=== PATIENT | female | born 1955 | race Caucasian/White ===

== ENCOUNTER 2018-10-26 07:02 | Inpatient (IN) | payer OTHER ==
[2018-10-14 16:30] VITALS: BMI 21.5
[2018-10-26] MEDS ORDERED: MIDAZOLAM HCL 2 MG/2 ML SINGLE DOSE VIAL ONE (08:50)
[2018-10-26] MEDS ORDERED: HALOPERIDOL LACTATE 5 MG/ML ONE (08:50)
[2018-10-26] MEDS ORDERED: fentaNYL CITRATE 250 MCG/5 ML VIAL ONE (08:59)
[2018-10-26] MEDS ORDERED: PROPOFOL 20 ML ONE ×2 (08:59)
[2018-10-26] MEDS ORDERED: SUCCINYLCHOLINE CHLORIDE 200 MG/10 ML VIAL ONE (08:59)
[2018-10-26] MEDS ORDERED: ROCURONIUM BROMIDE 50 MG/5 ML VIAL ONE ×2 (08:59→10:14)
[2018-10-26] MEDS ORDERED: ePHEDrine SULFATE 50 MG/1 ML AMPULE ONE ×3 (09:13→12:30)
[2018-10-26] MEDS ORDERED: LIDOCAINE HCL 2% JELLY (5 ML/TUBE) ONE (09:34)
[2018-10-26] MEDS ORDERED: LIDOCAINE HCL/PF 2% SDV 5ML VIAL ONE (09:34)
[2018-10-26] MEDS ORDERED: KETOROLAC TROMETHAMINE 30 MG/1 ML VIAL ONE (09:34)
[2018-10-26] MEDS ORDERED: ceFAZolin SODIUM 1 GM VIAL ONE ×2 (09:34→12:23)
[2018-10-26] MEDS ORDERED: ONDANSETRON 4 MG/2 ML VIAL ONE (09:34)
[2018-10-26] MEDS ORDERED: DEXAMETHASONE SOD PHOSPHATE 4 MG/1 ML VIAL ONE (09:34)
[2018-10-26] MEDS ORDERED: BUPIVACAINE HCL 0.25% 125 MG/50 ML VIAL ONE (10:01)
[2018-10-26] MEDS ORDERED: NEOSTIGMINE METHYLSULFATE 0.5 MG/ML - 10 ML MDV ONE (12:41)
[2018-10-26] MEDS ORDERED: GLYCOPYRROLATE 0.2 MG/1 ML VIAL ONE (12:42)
[2018-10-26] MEDS ORDERED: BUPIVACAINE HCL/PF 0.25% (2.5MG/ML) 10 ML VIAL IJ ONE (12:42)
[2018-10-26] MEDS ORDERED: PROMETHAZINE HCL 25 MG/1 ML VIAL IVPUSH PRN (13:33)
[2018-10-26] MEDS ORDERED: ONDANSETRON 4 MG/2 ML VIAL IVPUSH PRN (13:33)
[2018-10-26] MEDS ORDERED: oxyCODONE HCL 5 MG TABLET PO PRN ×4 (13:33→13:36)
[2018-10-26] MEDS ORDERED: ONDANSETRON 4 MG/2 ML VIAL IVPB PRN (13:36)
--- NOTE | 2018-10-26 13:44 | PN ---
Progress Note (short form) - Note Progress Note: flap is pink and viable, BOONE functioning and normal output. OK for discharge with instructions. patient and are very reliable.
[2018-10-26] MEDS ORDERED: LACTATED RINGERS SOLUTION 1,000 ML IV SCH (13:45)
--- NOTE | 2018-10-26 13:46 | OP ---
Operative Note - Note: Operative Date: 10/26/18 Pre-Operative Diagnosis: threatened left breast implant Operation: Left breast capsulotomy with implant exchange and TAP flap breast reconstruction Implants: natrelle SRX 470 Post-Operative Diagnosis: Same as Pre-op Anesthesia: General Drains & Tubes with Location: BOONE x 2
[2018-10-26 14:55] VITALS: TEMP 97.6
[2018-10-26 16:12] VITALS: BP 98/68; PULSE 74
--- NOTE | 2018-10-27 15:02 | OP ---
DATE OF OPERATION: 10/26/2018 TITLE OF PROCEDURE: 1. Left breast revision of reconstruction using number 1 thoracodorsal and intercostal artery traveling buyer flap reconstruction of the inferior pole. 2. Left breast capsulotomy. 3. Removal of left breast existing implant and replacement with smaller left breast implant. 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 The patient is marked in the holding area, awake and aware of all incisions and resulting scars, risks, benefits, alternatives, and limitations to the operation. She and her family fully understand and agree to proceed. DELFINA hose and sequential compression stockings are applied. Patient is given preoperative antibiotics. She is then brought to the operating room and placed in supine position. At this point, she is given anesthesia and repositioned into a right lateral decubitus position with all appropriate positioning aids used including an axillary roll, pillow between the knees. Matthews catheter had been placed, which was removed at the end of the procedure. She is prepped and draped in standard surgical fashion. A timeout is called. Patient, procedure, sites, and sides are verified. At this point, the planned area for inferior pole reconstruction is marked. A Doppler is used to identify perforating branches of the thoracodorsal artery as well as the intercostal arteries. These were marked, and the flap is patterned to include these. An incision is made along the inframammary fold of the left breast reconstruction, and through this, a capsulotomy is performed. The existing 550-mL implant is removed. Extensive capsulotomies are then performed to treat the patient's severe Garcia grade IV capsular contracture. These were done superiorly, medially, laterally, and anteriorly. Hemostasis is meticulously achieved. Attention is then directed toward harvesting the flap. After marking, the flap is harvested from distal to proximal in a subfascial plane. As the zone of the perforating blood vessels is entered, the perforating blood vessels are identified. A back cut along the latissimus dorsi muscle including a back cut along a more-proximal intercostal artery traveling buyer is performed in order to allow for rotation of the fasciocutaneous flap. The flap is then developed as a skin island propeller flap, where fascia is then incised circumferentially around the flap, and dissection is continued, preserving 2 separate perforating blood vessels in order to allow for a tension-free rotation. A tunnel is then created between the back donor site and the recipient site, and the flap is able to be transferred into the tunnel. This section of the flap is de-epithelialized prior to transfer. The flap is pink and viable at this point. Once the flap is then completely tunneled into the recipient site, the donor site is then closed after meticulous hemostasis is achieved. A size 10 flat BOONE drain is brought out through a separate lateral stab wound incision in the back and secured with a 2-0 silk drain suture. Undermining of skin both superiorly and inferiorly allowed for closured of the back with a series of interrupted fascial 2-0 Vicryl suture. Deep dermis approximated with a series of interrupted, buried, deep dermal 3-0 Monocryl suture, followed by a running 2-0 V-Loc mid-dermal suture. Dressings are applied with Steri-Strips, 4-x-4 gauze, and Hypafix tape. An Ioban is placed over the recipient breast site which is stapled closed. Patient's drapes are then removed. The patient is then positioned in a supine position. Guidry bag is completely removed. The patient is re-prepped and draped using dual prep of Betadine and ChloraPrep, and the recipient site is then reopened. The tunneled flap is pink and viable. The sizer is placed into the breast wound after hemostasis then meticulously achieved. With the sizer in place, it is able to be determined the extent of the flap that needs to remain without de-epithelialization. This is marked. The flap is de-epithelialized with the exception of this segment. A Natrelle SRX-470 silicone gel, smooth, round implant is then brought onto the field, rinsed in standard dilute Betadine, and using sterile new gloves and a 1-touch technique, placed into the pocket. Skin paddle is trimmed to conform. The flap is used to increase the inframammary pole distance. The flap is used to layer between the implant and the thinned inframammary pole skin. Flap is then inset with a series of interrupted, buried, deep dermal, 3-0 Monocryl suture, followed by a running subcuticular 3-0 Monocryl suture. A dog ear from the donor site is excised and closed in the same fashion. A loose dressing is applied. A size 10 round Chevy drain is brought out through a separate stab wound incision and is placed into the breast wound, secured with a 2-0 silk drain suture. Patient is awoken from anesthesia, having tolerated the procedure well, transferred to Recovery without complication. Please note that the flap performed is a modification of a latissimus dorsi flap; however, it is used as a fasciocutaneous version than a myocutaneous version. ANDER PÉREZ M.D. [id number]
--- NOTE | 2018-10-30 15:30 | OP ---
DATE OF OPERATION: 10/26/2018 PREOPERATIVE DIAGNOSES: 1. Personal history of breast cancer. 2. Acquired absence of bilateral breasts and nipples. 3. Deformity of reconstructed left breast with lower pole contraction and implant capsular contracture. POSTOPERATIVE DIAGNOSES: 1. Personal history of breast cancer. 2. Acquired absence of bilateral breasts and nipples. 3. Deformity of reconstructed left breast with lower pole contraction and implant capsular contracture. PROCEDURES: 1. Left breast implant removal with open periprosthetic capsulotomy. 2. Reconstruction of left breast lower pole with thoracodorsal artery damper fitter flap. 3. Left breast lower pole reconstruction. 4. Left thoracodorsal artery damper fitter intraoperative angiography using indocyanine green. 5. Processing and interpretation of intraoperative angiography images. ATTENDING SURGEON: Petros Alvarenga MD CO-SURGEON: Ander Pérez MD ANESTHESIA: General endotracheal. ESTIMATED BLOOD LOSS: 100 mL. SPECIMEN: 1. Left breast implant for gross examination only. 2. Left breast skin to Pathology. DRAINS: Number 10 flat BOONE x2. COMPLICATIONS: None. CONDITION: Stable to recovery room, extubated. INDICATIONS: The patient is a 62-year-old woman with a history of left breast cancer, who has previously undergone bilateral mastectomies and implant-based reconstruction. The patient required adjuvant radiation therapy to the left breast and has subsequently developed a lower pole contraction with an underlying capsular contracture of the implant. The patient is therefore brought back to the operating room by both myself and Dr. Pérez for further left breast reconstruction with an open periprosthetic capsulotomy, implant exchange, and reconstruction of the lower pole with thoracodorsal artery damper fitter flap. The risks, benefits, and alternatives of the reconstructed procedures were discussed with the patient and her preoperatively in detail and all questions were answered. The risks include but are not limited to bleeding, infection, pain, need for revision or further surgery, partial or complete flap loss, damage to neighboring structures including nerves, arteries, veins, and tendons. The patient understands these risks and has elected to proceed with surgery. PROCEDURE: After proper identification and marking the patient in the preoperative holding area, the patient was transported to the operating room, placed supine on the table, where noninvasive anesthesia monitors were applied. Intravenous access was established. General anesthesia was administered and the patient was intubated without difficulty. SCD boots were applied to bilateral extremities. Matthews catheter was placed. Intravenous antibiotics were then given. The patient was then placed into a right lateral decubitus position with the aid of a beanbag and an axillary roll. Care was taken to ensure all pressure points were padded. At this point, the patient's left breast, left upper extremity, left lateral chest wall, and left back were all prepped and draped sterilely. After a timeout was performed, Dr. Pérez and Beverly began working independently as co-surgeons with separate instrument setups. Attention was first turned towards the left lateral chest wall, where Doppler examination was used to identify 2 thoracodorsal artery perforators. An anteriorly-based thoracodorsal artery damper fitter flap was then designed based on these 2 perforators. Care was taken to ensure adequate length and width of the flap were designed. After a timeout was performed, a number 10 blade was used to make both limbs of the elliptical skin paddle of the damper fitter flap. Electrocautery was used to carry the dissection down through the full-thickness of the subcutaneous tissue, with care taken to bevel outwards. Once the fascia overlying the latissimus and trapezius muscle bellies was encountered, it was circumferentially incised. The flap was then raised from a posterior to inferior direction just below the level of the fascia. At this point, the dissection proceeded on the anterior edge of the skin paddle with again care taken to bevel outwards until the fascia overlying the serratus anterior muscle belly was encountered. The fascia was incised and the dissection continued anteriorly along the chest wall until a communication with the left breast pocket was achieved. Care was taken to ensure there was an adequate tunnel for flap transposition. At this point, bipolar electrocautery was used to perform a [id number] dissection of the damper fitter flap until the 2 thoracodorsal artery perforators were identified. A backcut in the anterior edge of the latissimus muscle belly was performed distal to the perforators and the flap was then transposed 180 degrees. With the flap in a rotated position, the SPY machine was brought into the field. A 5 mL intravenous injection of indocyanine green was given and angiography of the damper fitter flap was performed. The angiography images were then processed and relative perfusion data was used to assess the perfusion. There was noted to be good perfusion all the way to the distal edge of the flap. Once intraoperative angiography was completed, attention was turned towards the closure of the back. The back was irrigated and hemostasis was ensured. Then 0.25% Marcaine was infiltrated along the skin edges. A number 10 flat BOONE drain was then placed into the back pocket and brought out through a separate stab incision along the midaxillary line, secured to the skin with a 3-0 nylon suture. The back skin edges were then reapproximated primarily using a 2-0 Vicryl suture in a buried deep dermal fashion followed by a 3-0 V-Loc barbed suture in a running subcuticular fashion. Steri-Strips were placed, followed by dry gauze and Hypafix tape. The flap was temporarily covered with an Ioban dressing, and at this point, the drapes were taken down and the patient was flipped into a supine position. Again, care was taken to ensure all pressure points were padded and the patient's bilateral breasts were then prepped and draped sterilely again. At this point, the Ioban was removed and attention was turned towards the left breast. An inframammary fold incision had been designed and this was incised with a number 10 blade. The dissection was carried down through the subcutaneous tissue until the underlying breast capsule was identified. The breast capsule was incised and the underlying breast implant was removed and passed off the field for gross examination only. At this point, the left breast capsule was inspected and there was noted to be evidence of capsular contracture. An open periprosthetic capsulotomy was then performed superiorly, medially, and laterally. In addition, multiple radial scores in the inferior breast skin were performed. Once this was completed, the left breast pocket was irrigated and hemostasis was ensured. Next, a left breast implant sizer was placed and the thoracodorsal artery damper fitter flap was placed over it, and there was noted to be an ideal size and symmetry with the other breast at 470 mL. Therefore, the sizer was removed. The amount of thoracodorsal artery damper fitter skin paddle to be externalized along the inferior pole was then marked and redundant skin paddle was de-epithelialized both proximally and distally. There was noted to be healthy bleeding from the dermis throughout all zones of the flap. At this point, the left breast pocket was irrigated with antibiotic solution and Betadine was used to re-prep the skin and pocket. At this point, gloves were changed and an Allergan style SRX size 470 mL, smooth, round, silicone implant was opened. It was placed into the left breast pocket, and once proper orientation and positioning had been achieved, the thoracodorsal artery damper fitter flap was placed over the implant. The amount of [place] mastectomy skin flap to be excised was then marked and it was excised sharply and passed off the field to be sent to Pathology. At this point, a 2nd number 10 flat BOONE drain was placed in the left breast pocket and brought out through a separate stab incision laterally and secured to the skin with 3-0 nylon suture. The left breast flap was then inset, first along the inframammary fold with a 3-0 Monocryl in a buried deep dermal fashion, followed by 3-0 Monocryl in a running subcuticular fashion. The superior edge of the thoracodorsal artery damper fitter flap was then inset to the inferior edge of the mastectomy skin flap using a 3-0 Monocryl in a buried deep dermal fashion, followed by a 3-0 Monocryl in a running subcuticular fashion. At the conclusion of the closure, capillary refill on the damper fitter flap was noted to be normal and there was noted to be a significant improvement in the patient's preoperatively deformity. Therefore, the breast was washed, Steri-Strips were applied followed by dry gauze and a soft surgical bra. Both drains were hooked up to bulb suction, and at this point the patient was slowly awakened and was extubated without incident and was transported to recovery room in stable condition. PETROS ALVARENGA M.D. [id number]
--- NOTE | 2018-10-31 16:19 | PATH ---
Surgical Pathology Report Patient Name: ROGERS LEE Med. Rec. #: [id number] /Age/Gender: 1955 (Age: 62) / F Account: [id number] Location: [facility] Taken: 10/26/2018 Received: 10/26/2018 Reported: 10/31/2018 Physicians: Ander Pérez Specimen(s) Received EXPLANTED LEFT BREAST IMPLANT Clinical History Left breast cancer Final Diagnosis IMPLANT, LEFT BREAST, REMOVAL: IMPLANT, DESCRIBED (GROSS EXAMINATION ONLY). Electronically Signed Lorna Lyles M.D. Gross Description Received fresh labeled "explanted left breast implant," is a 12 cm in diameter x 5 cm in depth clear, rubbery, intact breast implant. No soft tissue is present. No sections are submitted, gross only. /10/27/2018 [facility]10/27/2018
== END 2018-10-26 15:45 | disposition home or self-care (01) | DRG 578 ==
LOC: FM/S 07:02
PROVIDERS: ADMIT Plastic Surgery; ATTEND Plastic Surgery
PROC: 0HRU0JZ Replacement of Left Breast with Synthetic Substitute, Open Approach (ICD-10-PCS; 2018-10-26)
PROC: 0HNU0ZZ Release Left Breast, Open Approach (ICD-10-PCS; 2018-10-26)
PROC: 0JX70ZB Transfer Back Subcutaneous Tissue and Fascia with Skin and Subcutaneous Tissue, Open Approach (ICD-10-PCS; principal; 2018-10-26 09:53)
PROC: 0HPU0JZ Removal of Synthetic Substitute from Left Breast, Open Approach (ICD-10-PCS; 2018-10-26 09:53)
DX: T85.44XA Capsular contracture of breast implant, initial encounter (principal); Y83.8 Other surgical procedures as the cause of abnormal reaction of the patient, or of later complication, without mention of misadventure at the time of the procedure; N65.1 Disproportion of reconstructed breast; K57.90 Diverticulosis of intestine, part unspecified, without perforation or abscess without bleeding; D47.3 Essential (hemorrhagic) thrombocythemia; Z85.3 Personal history of malignant neoplasm of breast
CPT/HCPCS: 88300-TC; 94760